=== PATIENT | female | born 1980 | race Caucasian/White ===

== ENCOUNTER → 2017-11-15 | Outpatient (CLI) | payer OTHER | END | disposition home or self-care (01) | LOC: CT 21:18 | PROC: BW211ZZ Computerized Tomography (CT Scan) of Abdomen and Pelvis using Low Osmolar Contrast (ICD-10-PCS; principal; 2017-11-15) | DX: R10.9 Unspecified abdominal pain (principal) | CPT/HCPCS: Q9967 ==